=== PATIENT | female | born 1955 | race African-American/Black ===

== ENCOUNTER 2016-11-28 09:01 | Inpatient (IN) | payer OTHER ==
[~2016-11-28] VITALS: Ht 152.4 cm; Wt 86.7 kg
[~2016-11-28 09:01] MED LIST: AMIO200T44 PO; ASPI81 PO; CARV6 PO; DSS100 PO; FURO40 PO; HEPA500017 SQ; LANS30CA55 PO; PANT40TA25 PO
[2016-11-28] MEDS ORDERED: WARF1 PO (09:11)
[2016-11-28] MEDS ORDERED: ACETAMINOPHEN 1000 MG/ISO-OSM 100 ML IV ONE (09:45)
[2016-11-28 10:12] LABS: BASOPHILS % (AUTO) 0.1 % (0.0-2.0); EOSINOPHILS % (AUTO) 1.6 % (1.0-6.0); HEMATOCRIT 29.6 % (36-46); HEMOGLOBIN 9.2 g/dL (12.0-16.0); LYMPHOCYTES # (AUTO) 0.9 K/uL (1.0-4.8); LYMPHOCYTES % (AUTO) 25.1 % (22.0-44.0); MEAN CORPUSCULAR HEMOGLOBIN 21.5 pg (26.0-34.0); MEAN CORPUSCULAR HGB CONC 30.9 G/dL (31.0-37.0); MEAN CORPUSCULAR VOLUME 69 fL (80-100); MONOCYTES # (AUTO) 0.6 K/uL (0.1-1.0); MONOCYTES % (AUTO) 16.5 % (2.0-9.0); NEUTROPHILS % (AUTO) 56.7 % (40.0-70.0); PLATELET COUNT (AUTO) 137 K/uL (150-450); RED BLOOD CELL COUNT(AUTO) 4.27 MIL/uL (4.00-5.20); RED CELL DISTRIBUTION WIDTH 21.9 % (11.5-14.5); WHITE BLOOD COUNT (AUTO) 3.5 K/uL (4.5-11.0)
[2016-11-28 10:20] LABS: ANION GAP 12 mmol/L (8-16); CALCIUM, TOTAL 8.7 mg/dL (8.8-10.5); CARBON DIOXIDE 23 mmol/L (22-29); CHLORIDE 107 mmol/L (98-107); CREATININE 2.65 mg/dL (0.60-1.30); GLOMERULAR FILTR. RATE CALC 22 mL/min (>60); POTASSIUM 3.2 mmol/L (3.5-5.1); SODIUM SERUM 142 mmol/L (136-145); UREA NITROGEN, BLOOD 41 mg/dL (7-18)
[2016-11-28 10:26] LABS: INR 1.4 (0.9-1.1); PROTHROMBIN TIME 15.2 SEC (9.4-11.6)
[2016-11-28 10:38] LABS: RBC MORPHOLOGY COMMENT ABNORMAL RBC MORPH
[2016-11-28 10:45] LABS: ALANINE AMINOTRANSFERASE 14 U/L (12-78); ALBUMIN 2.8 g/dL (3.4-5.0); ASPARTATE AMINOTRANSFERASE 17 U/L (15-37); BILIRUBIN,TOTAL 1.4 mg/dL (0.1-1.0); CREATINE KINASE MB 3.1 ng/mL (0-5); CREATINE KINASE, TOTAL 96 U/L (26-192); TOTAL PROTEIN, SERUM 6.9 g/dL (6.4-8.2)
[2016-11-28] MEDS ORDERED: HEPARIN SODIUM 25000 UNITS/D5W 250 ML IV PRN (11:00)
[2016-11-28] MEDS ORDERED: HEPARIN SODIUM,PORCINE 5,000 UNITS/ML VIAL IVP ONE ×2 (11:00→12:45)
[2016-11-28] MEDS ORDERED: ACETAMINOPHEN 325 MG TABLET PO PRN (12:45)
[2016-11-28] MEDS ORDERED: MAGNESIUM HYDROXIDE SUSPENSION 30 ML UDCUP PO PRN (12:45)
[2016-11-28] MEDS ORDERED: BISACODYL 10 MG RECTAL RECTAL SUPPOSITORY PR PRN (12:45)
[2016-11-28] MEDS ORDERED: HEPARIN SODIUM,PORCINE 5,000 UNITS/ML VIAL IVP PRN ×3 (12:45→21:32)
[2016-11-28] MEDS ORDERED: ZOLPIDEM TARTRATE 5 MG TABLET PO PRN (12:45)
[2016-11-28] MEDS ORDERED: MORPHINE SULFATE 10 MG/ML SYRINGE IVP PRN (12:45)
[2016-11-28] MEDS: PANTOPRAZOLE SODIUM 40 MG DR TABLET PO SCH (13:08)
[2016-11-28 13:12] VITALS: BP 134/71
[2016-11-28] MEDS: MORPHINE SULFATE 2 MG/ML SYRINGE IVP PRN (16:07)
[2016-11-28 19:16] VITALS: BP 152/87
[2016-11-28] MEDS: CARVEDILOL 6.25 MG TABLET PO SCH (21:37)
[2016-11-28] MEDS: AMIODARONE HCL 200 MG TABLET PO SCH (21:37)
[2016-11-28] MEDS: OxyCODONE HCL/ACETAMINOPHEN 5-325 MG TABLET PO PRN (21:37)
[2016-11-28] MEDS: HEPARIN SODIUM,PORCINE 5,000 UNITS/ML VIAL IVP PRN (21:43)
[2016-11-28 23:59] VITALS: BP 148/75
[2016-11-29 04:09] LABS: BASOPHILS # (AUTO) 0.01 K/uL (0.00-0.20); BASOPHILS % (AUTO) 0.4 % (0.0-2.0); EOSINOPHILS % (AUTO) 2.66 % (1.0-6.0); HEMATOCRIT 27.7 % (36-46); HEMOGLOBIN 8.9 g/dL (12.0-16.0); LYMPHOCYTES # (AUTO) 1.1 K/uL (1.0-4.8); LYMPHOCYTES % (AUTO) 30.3 % (22.0-44.0); MEAN CORPUSCULAR HEMOGLOBIN 22.1 pg (26.0-34.0); MEAN CORPUSCULAR VOLUME 69 fL (80-100); MONOCYTES # (AUTO) 0.6 K/uL (0.1-1.0); MONOCYTES % (AUTO) 16.6 % (2.0-9.0); NEUTROPHILS # (AUTO) 1.9 K/uL (1.8-7.7); NEUTROPHILS % (AUTO) 50.1 % (40.0-70.0); PLATELET COUNT (AUTO) 151 K/uL (150-450); RED BLOOD CELL COUNT(AUTO) 4.01 MIL/uL (4.00-5.20); RED CELL DISTRIBUTION WIDTH 21.6 % (11.5-14.5); WHITE BLOOD COUNT (AUTO) 3.7 K/uL (4.5-11.0)
[2016-11-29 04:16] LABS: ALBUMIN 2.7 g/dL (3.4-5.0); BILIRUBIN,TOTAL 1.4 mg/dL (0.1-1.0); CALCIUM, TOTAL 8.4 mg/dL (8.8-10.5); CREATININE 2.93 mg/dL (0.60-1.30); POTASSIUM 3.3 mmol/L (3.5-5.1); TOTAL PROTEIN, SERUM 6.7 g/dL (6.4-8.2)
[2016-11-29 04:47] LABS: RBC MORPHOLOGY COMMENT ABNORMAL RBC MORPH
[2016-11-29 04:52] VITALS: BP 147/81
[2016-11-29] MEDS: HEPARIN SODIUM 25000 UNITS/D5W 250 ML IV PRN ×2 (05:44→17:06)
[2016-11-29 07:22] VITALS: BP 131/59
[2016-11-29] MEDS: ASPIRIN 81 MG CHEWABLE TABLET PO SCH (09:36)
[2016-11-29] MEDS: CARVEDILOL 6.25 MG TABLET PO SCH ×2 (09:36→20:16)
[2016-11-29] MEDS: AMIODARONE HCL 200 MG TABLET PO SCH ×2 (09:36→20:16)
[2016-11-29] MEDS: FUROSEMIDE 40 MG TABLET PO SCH (09:36)
[2016-11-29] MEDS: PANTOPRAZOLE SODIUM 40 MG DR TABLET PO SCH (09:36)
[2016-11-29] MEDS: OxyCODONE HCL/ACETAMINOPHEN 5-325 MG TABLET PO PRN ×2 (09:38→15:07)
[2016-11-29 11:14] VITALS: BP 120/58
[2016-11-29] MEDS ORDERED: POTASSIUM CHLORIDE 20 MEQ ER TABLET PO PRN (12:00)
[2016-11-29] MEDS ORDERED: POTASSIUM CHL 10 MEQ/WATER 50 ML IV PRN (12:00)
[2016-11-29] MEDS ORDERED: PENTETATE DTPA TC99M/MCL ISOTOPE 1 EA INJ INJ ONE (15:50)
[2016-11-29 16:00] VITALS: BP 127/65
[2016-11-29 19:51] VITALS: BP 137/66
[2016-11-29] MEDS: MORPHINE SULFATE 2 MG/ML SYRINGE IVP PRN ×2 (20:16→23:45)
[2016-11-29 22:21] VITALS: BP 128/71
[2016-11-30] MEDS: HEPARIN SODIUM,PORCINE 5,000 UNITS/ML VIAL IVP PRN ×2 (04:39→12:10)
[2016-11-30 05:00] VITALS: BP 167/90
[2016-11-30 07:30] VITALS: BP 182/81
[2016-11-30] MEDS: FUROSEMIDE 40 MG TABLET PO SCH (08:17)
[2016-11-30] MEDS: CARVEDILOL 6.25 MG TABLET PO SCH ×2 (08:17→20:53)
[2016-11-30] MEDS: ASPIRIN 81 MG CHEWABLE TABLET PO SCH (08:17)
[2016-11-30] MEDS: AMIODARONE HCL 200 MG TABLET PO SCH ×2 (08:17→20:53)
[2016-11-30] MEDS: PANTOPRAZOLE SODIUM 40 MG DR TABLET PO SCH (08:17)
[2016-11-30] MEDS: MORPHINE SULFATE 2 MG/ML SYRINGE IVP PRN ×3 (08:18→17:15)
[2016-11-30] MEDS ORDERED: MAA ALBUMIN AGGREGATED TC99M/UD<10MCL ISOTOPE 1 EA INJ INJ ONE (09:05)
[2016-11-30 11:13] LABS: BASOPHILS # (AUTO) 0.03 K/uL (0.00-0.20); BASOPHILS % (AUTO) 0.6 % (0.0-2.0); EOSINOPHILS # (AUTO) 0.11 K/uL (0.00-0.70); EOSINOPHILS % (AUTO) 2.45 % (1.0-6.0); HEMATOCRIT 24.9 % (36-46); HEMOGLOBIN 7.9 g/dL (12.0-16.0); LYMPHOCYTES # (AUTO) 0.9 K/uL (1.0-4.8); LYMPHOCYTES % (AUTO) 19.5 % (22.0-44.0); MEAN CORPUSCULAR HGB CONC 31.7 G/dL (31.0-37.0); MEAN CORPUSCULAR VOLUME 69 fL (80-100); MONOCYTES # (AUTO) 0.7 K/uL (0.1-1.0); MONOCYTES % (AUTO) 14.8 % (2.0-9.0); NEUTROPHILS # (AUTO) 2.8 K/uL (1.8-7.7); NEUTROPHILS % (AUTO) 62.6 % (40.0-70.0); PLATELET COUNT (AUTO) 131 K/uL (150-450); RED BLOOD CELL COUNT(AUTO) 3.58 MIL/uL (4.00-5.20); RED CELL DISTRIBUTION WIDTH 21.7 % (11.5-14.5); WHITE BLOOD COUNT (AUTO) 4.5 K/uL (4.5-11.0)
[2016-11-30 11:15] VITALS: BP 152/99
[2016-11-30 11:41] LABS: ALBUMIN 2.7 g/dL (3.4-5.0); BILIRUBIN,TOTAL 1.1 mg/dL (0.1-1.0); CALCIUM, TOTAL 8.5 mg/dL (8.8-10.5); CREATININE 2.72 mg/dL (0.60-1.30); POTASSIUM 3.8 mmol/L (3.5-5.1); TOTAL PROTEIN, SERUM 6.5 g/dL (6.4-8.2)
[2016-11-30 11:55] LABS: RBC MORPHOLOGY COMMENT ABNORMAL RBC MORPH
[2016-11-30] MEDS: HEPARIN SODIUM 25000 UNITS/D5W 250 ML IV PRN ×2 (12:12→22:19)
[2016-11-30] MEDS ORDERED: FURO20 PO (14:15)
[2016-11-30 15:35] VITALS: BP 133/72
[2016-11-30 20:07] VITALS: BP 140/86
[2016-11-30 23:49] VITALS: BP 127/70
[2016-12-01 05:01] VITALS: BP 144/72
[2016-12-01] MEDS: OxyCODONE HCL/ACETAMINOPHEN 5-325 MG TABLET PO PRN (05:35)
[2016-12-01 07:50] VITALS: BP 138/77
[2016-12-01] MEDS: ASPIRIN 81 MG CHEWABLE TABLET PO SCH (08:41)
[2016-12-01] MEDS: PANTOPRAZOLE SODIUM 40 MG DR TABLET PO SCH (08:41)
[2016-12-01] MEDS: CARVEDILOL 6.25 MG TABLET PO SCH ×2 (08:41→19:56)
[2016-12-01] MEDS: AMIODARONE HCL 200 MG TABLET PO SCH ×2 (08:41→19:55)
[2016-12-01] MEDS: FUROSEMIDE 20 MG TABLET PO SCH (08:41)
[2016-12-01 09:24] LABS: ALBUMIN 2.5 g/dL (3.4-5.0); BILIRUBIN,TOTAL 0.8 mg/dL (0.1-1.0); CALCIUM, TOTAL 8.1 mg/dL (8.8-10.5); CREATININE 2.96 mg/dL (0.60-1.30); POTASSIUM 3.9 mmol/L (3.5-5.1); TOTAL PROTEIN, SERUM 6.3 g/dL (6.4-8.2)
[2016-12-01 12:05] VITALS: BP 137/72
[2016-12-01 15:51] VITALS: BP 144/82
[2016-12-01] MEDS ORDERED: BARIUM SULFATE 0.1% SUSPENSION 450 ML BOTTLE ONE ×2 (16:38→16:39)
[2016-12-01 19:33] VITALS: BP 164/79
[2016-12-01] MEDS: MORPHINE SULFATE 2 MG/ML SYRINGE IVP PRN (19:54)
[2016-12-01 23:47] VITALS: BP 154/68
[2016-12-02 04:16] VITALS: BP 164/73
[2016-12-02 07:30] VITALS: BP 162/66
[2016-12-02] MEDS: ASPIRIN 81 MG CHEWABLE TABLET PO SCH (08:05)
[2016-12-02] MEDS: FUROSEMIDE 20 MG TABLET PO SCH (08:05)
[2016-12-02] MEDS: CARVEDILOL 6.25 MG TABLET PO SCH ×2 (08:06→20:25)
[2016-12-02] MEDS: AMIODARONE HCL 200 MG TABLET PO SCH ×2 (08:06→20:26)
[2016-12-02] MEDS: MORPHINE SULFATE 2 MG/ML SYRINGE IVP PRN ×3 (08:07→20:34)
[2016-12-02 11:15] VITALS: BP 160/70
[2016-12-02] MEDS ORDERED: EPOETIN ALFA 10,000 UNITS/ML VIAL SQ SCH (11:30)
[2016-12-02 16:06] VITALS: BP 157/75
[2016-12-02 19:15] VITALS: BP 144/78
[2016-12-02] MEDS ORDERED: SODIUM BICARBONATE 75 MEQ in DEXTROSE 5%-0.45% SODIUM CHL 1,000 ML IV ONE (20:00)
[2016-12-02] MEDS: ACETYLCYSTEINE 20% 200 MG/ML 4 ML ORAL SOLUTION PO SCH (20:31)
[2016-12-02 23:07] VITALS: BP 145/76
[2016-12-03 05:53] VITALS: BP 131/93
[2016-12-03 07:22] VITALS: BP 145/77
[2016-12-03] MEDS: CALCITRIOL 0.25 MCG CAPSULE PO SCH (09:31)
[2016-12-03] MEDS: AMIODARONE HCL 200 MG TABLET PO SCH ×2 (09:31→19:57)
[2016-12-03] MEDS: FUROSEMIDE 20 MG TABLET PO SCH (09:31)
[2016-12-03] MEDS: CARVEDILOL 6.25 MG TABLET PO SCH ×2 (09:32→19:57)
[2016-12-03] MEDS: ASPIRIN 81 MG CHEWABLE TABLET PO SCH (09:32)
[2016-12-03] MEDS: BACITRACIN 28.4 GM OINTMENT TP SCH ×2 (09:38→19:57)
[2016-12-03] MEDS: ACETYLCYSTEINE 20% 200 MG/ML 4 ML ORAL SOLUTION PO SCH (09:38)
[2016-12-03 10:41] LABS: EOSINOPHILS # (AUTO) 0.04 K/uL (0.00-0.70); EOSINOPHILS % (AUTO) 1.92 % (1.0-6.0); HEMATOCRIT 23.3 % (36-46); HEMOGLOBIN 7.2 g/dL (12.0-16.0); LYMPHOCYTES # (AUTO) 0.7 K/uL (1.0-4.8); LYMPHOCYTES % (AUTO) 29.1 % (22.0-44.0); MEAN CORPUSCULAR VOLUME 71 fL (80-100); MONOCYTES # (AUTO) 0.3 K/uL (0.1-1.0); MONOCYTES % (AUTO) 14.8 % (2.0-9.0); NEUTROPHILS # (AUTO) 1.2 K/uL (1.8-7.7); NEUTROPHILS % (AUTO) 54.1 % (40.0-70.0); RED BLOOD CELL COUNT(AUTO) 3.28 MIL/uL (4.00-5.20); RED CELL DISTRIBUTION WIDTH 21.8 % (11.5-14.5); WHITE BLOOD COUNT (AUTO) 2.3 K/uL (4.5-11.0)
[2016-12-03 10:47] LABS: PLATELET COUNT (AUTO) 85 K/uL (150-450)
[2016-12-03 10:55] LABS: ALBUMIN 2.4 g/dL (3.4-5.0); CREATININE 2.66 mg/dL (0.60-1.30); POTASSIUM 4.8 mmol/L (3.5-5.1); TOTAL PROTEIN, SERUM 6.4 g/dL (6.4-8.2)
[2016-12-03 11:16] LABS: RBC MORPHOLOGY COMMENT ABNORMAL RBC MORPH
[2016-12-03 11:36] VITALS: BP 147/70
[2016-12-03 16:10] VITALS: BP 143/76
[2016-12-03] MEDS: GABAPENTIN 300 MG CAPSULE PO SCH ×2 (17:05→19:57)
[2016-12-03 19:30] VITALS: BP 143/89
[2016-12-03] MEDS: MORPHINE SULFATE 2 MG/ML SYRINGE IVP PRN (19:58)
[2016-12-03 23:16] VITALS: BP 115/56
[2016-12-04 04:34] VITALS: BP 144/79
[2016-12-04 07:16] VITALS: BP 134/74
[2016-12-04] MEDS ORDERED: EPOETIN ALFA 10,000 UNITS/ML VIAL SQ SCH (09:00)
[2016-12-04 09:51] LABS: BASOPHILS % (AUTO) 0.4 % (0.0-2.0); EOSINOPHILS % (AUTO) 2.9 % (1.0-6.0); HEMATOCRIT 24.1 % (36-46); HEMOGLOBIN 7.4 g/dL (12.0-16.0); LYMPHOCYTES # (AUTO) 0.9 K/uL (1.0-4.8); LYMPHOCYTES % (AUTO) 29.3 % (22.0-44.0); MEAN CORPUSCULAR HEMOGLOBIN 21.8 pg (26.0-34.0); MEAN CORPUSCULAR HGB CONC 30.7 G/dL (31.0-37.0); MEAN CORPUSCULAR VOLUME 71 fL (80-100); MONOCYTES # (AUTO) 0.5 K/uL (0.1-1.0); MONOCYTES % (AUTO) 16.7 % (2.0-9.0); NEUTROPHILS # (AUTO) 1.6 K/uL (1.8-7.7); NEUTROPHILS % (AUTO) 50.7 % (40.0-70.0); PLATELET COUNT (AUTO) 65 K/uL (150-450); RED BLOOD CELL COUNT(AUTO) 3.39 MIL/uL (4.00-5.20); RED CELL DISTRIBUTION WIDTH 21.7 % (11.5-14.5); WHITE BLOOD COUNT (AUTO) 3.2 K/uL (4.5-11.0)
[2016-12-04] MEDS: CARVEDILOL 6.25 MG TABLET PO SCH ×3 (10:00→22:05)
[2016-12-04] MEDS: AMIODARONE HCL 200 MG TABLET PO SCH ×2 (10:00→20:36)
[2016-12-04] MEDS: ASPIRIN 81 MG CHEWABLE TABLET PO SCH (10:00)
[2016-12-04] MEDS: GABAPENTIN 300 MG CAPSULE PO SCH ×3 (10:00→20:36)
[2016-12-04] MEDS: FUROSEMIDE 20 MG TABLET PO SCH ×2 (10:00→20:36)
[2016-12-04] MEDS: BACITRACIN 28.4 GM OINTMENT TP SCH ×2 (10:00→20:36)
[2016-12-04 10:06] LABS: ALBUMIN 2.4 g/dL (3.4-5.0); CALCIUM, TOTAL 8.4 mg/dL (8.8-10.5); CREATININE 2.64 mg/dL (0.60-1.30); PHOSPHORUS 3.4 mg/dL (2.5-4.9); POTASSIUM 4.1 mmol/L (3.5-5.1); TOTAL PROTEIN, SERUM 6.3 g/dL (6.4-8.2)
[2016-12-04 11:18] LABS: RBC MORPHOLOGY COMMENT ABNORMAL RBC MORPH
[2016-12-04 11:42] VITALS: BP 141/71
[2016-12-04 15:58] VITALS: BP 128/70
[2016-12-04 20:30] VITALS: BP 135/68
[2016-12-04 22:02] VITALS: BP 147/78
[2016-12-04] MEDS: MORPHINE SULFATE 2 MG/ML SYRINGE IVP PRN (22:04)
[2016-12-05 03:46] VITALS: BP 130/62
[2016-12-05 07:01] VITALS: BP 148/73
[2016-12-05] MEDS: GABAPENTIN 300 MG CAPSULE PO SCH (09:12)
[2016-12-05] MEDS: CARVEDILOL 6.25 MG TABLET PO SCH (09:12)
[2016-12-05] MEDS: BACITRACIN 28.4 GM OINTMENT TP SCH (09:12)
[2016-12-05] MEDS: FUROSEMIDE 20 MG TABLET PO SCH (09:12)
[2016-12-05] MEDS: ASPIRIN 81 MG CHEWABLE TABLET PO SCH (09:12)
[2016-12-05] MEDS: CALCITRIOL 0.25 MCG CAPSULE PO SCH (09:12)
[2016-12-05] MEDS: AMIODARONE HCL 200 MG TABLET PO SCH (09:12)
[2016-12-05 10:46] LABS: CALCIUM, TOTAL 8.3 mg/dL (8.8-10.5); CREATININE 2.73 mg/dL (0.60-1.30)
[2016-12-05 11:17] VITALS: BP 136/75
[2016-12-05 12:20] LABS: HEPATITIS Bs ANTIGEN SCREEN P Negative (Negative); HEPATITIS C AB SCREEN 0.1 s/co ratio (0.0-0.9)
[2016-12-05 15:25] VITALS: BP 137/70
[2016-12-30] MEDS ORDERED: EPOETIN ALFA 10,000 UNITS/ML VIAL SQ SCH (11:00)
== END 2016-12-05 16:05 | disposition home or self-care (01) | DRG 197 ==
LOC: EMS 09:02 → 6N 12:37
PROVIDERS: ADMIT Hospitalist; ATTEND Hospitalist
DX: I74.3 Embolism and thrombosis of arteries of the lower extremities (principal); E43 Unspecified severe protein-calorie malnutrition; I13.2 Hypertensive heart and chronic kidney disease with heart failure and with stage 5 chronic kidney disease, or end stage renal disease; D68.59 Other primary thrombophilia; N18.6 End stage renal disease; D69.6 Thrombocytopenia, unspecified; I82.412 Acute embolism and thrombosis of left femoral vein; I82.4Z2 Acute embolism and thrombosis of unspecified deep veins of left distal lower extremity; I50.9 Heart failure, unspecified; K74.60 Unspecified cirrhosis of liver; J44.9 Chronic obstructive pulmonary disease, unspecified; N25.81 Secondary hyperparathyroidism of renal origin; I82.A19 Acute embolism and thrombosis of unspecified axillary vein; E88.09 Other disorders of plasma-protein metabolism, not elsewhere classified; E87.70 Fluid overload, unspecified; I48.2 Chronic atrial fibrillation; R80.9 Proteinuria, unspecified; Z68.37 Body mass index [BMI] 37.0-37.9, adult; D63.8 Anemia in other chronic diseases classified elsewhere; E87.6 Hypokalemia; E04.2 Nontoxic multinodular goiter; Z99.2 Dependence on renal dialysis; Z98.890 Other specified postprocedural states; Z79.01 Long term (current) use of anticoagulants; Z79.82 Long term (current) use of aspirin; Z79.1 Long term (current) use of non-steroidal anti-inflammatories (NSAID); Z79.899 Other long term (current) drug therapy; Z87.891 Personal history of nicotine dependence; Z86.718 Personal history of other venous thrombosis and embolism; Z84.1 Family history of disorders of kidney and ureter; Y83.9 Surgical procedure, unspecified as the cause of abnormal reaction of the patient, or of later complication, without mention of misadventure at the time of the procedure; Y92.238 Other place in hospital as the place of occurrence of the external cause; Y93.89 Activity, other specified; Y92.89 Other specified places as the place of occurrence of the external cause; Y99.8 Other external cause status
CPT/HCPCS: 71250; 72192; 74150; 78582; 80074; 84100; 84132; 93005; 93925; 93970; 93971; 96365; 96366; 96368; 96375; 99285; A9539; A9540; J0131; J0885; J1644; J2270; J3490

== ENCOUNTER 2017-05-08 19:16 | Emergency (ER) | payer OTHER ==
[~2017-05-08] VITALS: Ht 152.4 cm; Wt 67.0 kg
[~2017-05-08 19:16] MED LIST changes: +FURO20 PO; -FURO40 PO; +WARF1 PO
[2017-05-08] MEDS ORDERED: MULT-12 PO (19:43)
[2017-05-08] MEDS ORDERED: AMLO-512 PO (19:43)
[2017-05-08] MEDS ORDERED: CALC0.253 PO (19:43)
[2017-05-08 22:16] LABS: BASOPHILS % (AUTO) 0.2 % (0.0-2.0); EOSINOPHILS % (AUTO) 3.9 % (1.0-6.0); HEMATOCRIT 27.2 % (36-46); HEMOGLOBIN 8.8 g/dL (12.0-16.0); LYMPHOCYTES # (AUTO) 1.5 K/uL (1.0-4.8); LYMPHOCYTES % (AUTO) 23.5 % (22.0-44.0); MEAN CORPUSCULAR HEMOGLOBIN 24.8 pg (26.0-34.0); MEAN CORPUSCULAR HGB CONC 32.2 G/dL (31.0-37.0); MEAN CORPUSCULAR VOLUME 77 fL (80-100); MONOCYTES % (AUTO) 15.9 % (2.0-9.0); NEUTROPHILS # (AUTO) 3.5 K/uL (1.8-7.7); NEUTROPHILS % (AUTO) 56.5 % (40.0-70.0); PLATELET COUNT (AUTO) 174 K/uL (150-450); RED BLOOD CELL COUNT(AUTO) 3.53 MIL/uL (4.00-5.20); RED CELL DISTRIBUTION WIDTH 17.5 % (11.5-14.5); WHITE BLOOD COUNT (AUTO) 6.3 K/uL (4.5-11.0)
[2017-05-08 22:23] LABS: ANION GAP 10 mmol/L (8-16); CALCIUM, TOTAL 8.8 mg/dL (8.8-10.5); CARBON DIOXIDE 23 mmol/L (22-29); CHLORIDE 106 mmol/L (98-107); CREATININE 2.66 mg/dL (0.60-1.30); GLOMERULAR FILTR. RATE CALC 22 mL/min (>60); POTASSIUM 3.6 mmol/L (3.5-5.1); SODIUM SERUM 139 mmol/L (136-145); UREA NITROGEN, BLOOD 42 mg/dL (7-18)
[2017-05-08 22:26] LABS: ALBUMIN 2.6 g/dL (3.4-5.0); INR 1.1 (0.9-1.1); PROTHROMBIN TIME 11.6 SEC (9.4-11.6)
[2017-05-08 22:32] LABS: RBC MORPHOLOGY COMMENT ABNORMAL RBC MORPH
[2017-05-08 22:44] LABS: ALANINE AMINOTRANSFERASE 39 U/L (12-78); ASPARTATE AMINOTRANSFERASE 48 U/L (15-37); BILIRUBIN,TOTAL 0.5 mg/dL (0.1-1.0); CREATINE KINASE, TOTAL 53 U/L (26-192); TOTAL PROTEIN, SERUM 6.8 g/dL (6.4-8.2)
[2017-05-08] MEDS ORDERED: CLINDAMYCIN 900 MG/D5% WATER 50 ML IV ONE (22:45)
[2017-05-08] MEDS ORDERED: MORPHINE SULFATE 4 MG/ML SYRINGE IVP ONE (22:45)
[2017-05-08] MEDS ORDERED: CefTRIAXone 1 GM/DEXTROSE 50 ML IV ONE (22:45)
[2017-05-08] MEDS ORDERED: ONDANSETRON HCL 4 MG/2 ML VIAL IVP ONE (22:45)
[2017-05-08] MEDS ORDERED: SODIUM CHLORIDE 0.9% 250 ML IV ONE (23:30)
[2017-05-09] MEDS ORDERED: HYDROmorphone 2 MG/ML SYRINGE IVP ONE (00:15)
[2017-05-09 01:46] VITALS: BP 142/62
== END 2017-05-09 01:49 | disposition home or self-care (01) ==
LOC: EMS 19:18
DX: L03.113 Cellulitis of right upper limb (principal); L29.9 Pruritus, unspecified; I13.2 Hypertensive heart and chronic kidney disease with heart failure and with stage 5 chronic kidney disease, or end stage renal disease; N18.6 End stage renal disease; I50.9 Heart failure, unspecified; I48.91 Unspecified atrial fibrillation; Z79.82 Long term (current) use of aspirin
CPT/HCPCS: 36415; 73130; 80053; 82550; 84484; 85025; 85610; 85730; 87040; 96374; 96375; 99285; J0696; J1170; J2270; J2405; J3490; J7050